=== PATIENT | male | born 1950 ===

== ENCOUNTER 2019-01-07 19:10 | Inpatient (IN) ==
[2019-01-08] MEDS ORDERED: Naloxone 0.4 MG/ML INJ IVP PRN (01:05)
[2019-01-08] MEDS ORDERED: OXYCODONE Oral CONC 10 MG/0.5 ML ORAL.SYG SL PRN (01:31)
[2019-01-08] MEDS: OXYCODONE Oral CONC 10 MG/0.5 ML ORAL.SYG SL PRN ×2 (01:52→21:22)
--- NOTE | 2019-01-08 02:28 | Internal Med History&Physical ---
Date of Encounter: 01/07/19 Time of Encounter: 23:40 Internal Medicine - H&P: HPI Chief complaint: Left hip fracture Admitted From: Hospital to Hospital Transfer Plans for Post Hospital Care: Home History of present illness: Mr. Fu is a 68 year old male Patient presented from [facility] emergency room for a left hip fracture. Patient poor historian, details of history of present illness obtained from ER record which was sent with the patient. Details of initial injury is unknown however there is a note from the record that indicates that on Monday the patient fell onto his left hip. 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 He has a history of dementia as well. He is a resident at a senior living. In the ER patient's vital signs were within normal limits, BMP was performed and is as follows: Sodium 135, potassium 4.1, bicarbonate 24, chloride 102, BUN is 39 and creatinine 2.15. Patient's glucose was 375. GFR is 31. Patient does have a history of chronic kidney disease. X-ray of the hip showed comminuted fracture at left femoral neck and intertrochanteric region. A chest x-ray was also performed that showed a left lower lobe opacity suspicion for some pneumonia is possible. He was given 6 units of insulin, and orthopedic surgery was contacted. He was transferred to [facility] for further management. Details from [facility] are sparse, patient is missing majority of his lab work that was apparently performed. Upon my evaluation patient is resting comfortably in the hospital bed. He is confused but does know his name, birthdate and the month. He did not know initially where he was but he did know he was in [place]. According to the paperwork sent from [facility] he has past medical history of chronic kidney disease, CVA with left-sided paralysis, diabetes, dementia, GERD, hypertension and seizures. Information of family history could not be obtained. His paperwork indicated that he is a full code. Patient did denied chest pain, abdominal pain, nausea, vomiting, diarrhea and constipation. Past Med Surg Social Fam HX - Past Medical History Additional medical history: CKD, CVA, DM, Dementia, GERD, HTN, Seizures Psychiatric history: no psych history - Past Surgical History Surgical History: no surgical history - Social History Smoking Status: Unknown if ever smoked Smokeless Tobacco Status: No Alcohol use: none Drug use: none Internal Medicine - H&P: Meds Aspirin [Lo-Dose Aspirin EC] 81 mg PO 01/07/19 [History] Carvedilol [Coreg] 01/07/19 [History] Divalproex Sodium [Depakote] TID 01/07/19 [History] Insulin ASPART [NovoLOG] 01/07/19 [History] Insulin Glargine [Lantus] 34 units SQ 01/07/19 [History] Medroxyprogesterone Acetate [Provera] 5 mg PO DAILY 01/07/19 [History] Promethazine [Phenergan] 12.5 mg IV Q6HR PRN 01/07/19 [History] amLODIPine [Norvasc] 5 mg PO DAILY 01/07/19 [History] levETIRAcetam [Roweepra] 750 mg PO BID 01/07/19 [History] Allergy/AdvReac Type Severity Reaction Status Date / Time No Known Allergies Allergy Verified 01/07/19 22:19 All Systems PM: A 10-system review of systems was performed and is negative for pertinent findings except as documented above in the HPI. - Constitutional Vitals: Temp Pulse Resp BP Pulse Ox 99.5 F 96 18 171/106 93 01/07/19 22:56 01/07/19 22:56 01/07/19 22:56 01/07/19 22:56 01/07/19 22:56 General appearance: Present: A&O X 2, pleasant, no acute distress, answers questions appropriately. Absent: cooperative Exam: - - Head Head exam: Present: normal inspection - Eye Eye exam: Present: normal appearance - Respiratory Respiratory exam: Absent: CTAB, rales, respiratory distress, rhonchi, wheezes - Cardiovascular Cardiovascular exam: Present: RRR. Absent: diastolic murmur, systolic murmur - GI/Abdominal GI/Abdominal exam: Present: normal bowel sounds, soft. Absent: tenderness - Extremities Exam Extremities exam: Present: tenderness, warm, radial pulses palpable and symmetrical. Absent: pedal edema Additional comments: Patient has tenderness at the left hip, he is laying in a bent position on his left hip. He does not seem to be in much pain. - Neurological Exam Neurological exam: Present: motor sensory deficit. Absent: no focal deficits, strengths equal and symetr throughout, facial droop, speech deficit Additional comments: Left-sided paralysis, patient did not cooperate with neuro exam completely for full assessment. He does have frequent mouth movements even while not talking. - Skin Skin exam: Present: dry, normal color, warm - Assessment and Plan (1) Closed left hip fracture Current Visit: Yes Status: Acute Assessment and plan: Patient has a left hip fracture as seen on x-ray. Imaging has been sent to radiology for uploaded into our system. Dr. Muhammad was contacted and will see the patient in the morning. Follow up orthopedic surgery consult Nothing by mouth Pain management as needed A.m. labs EKG in the morning Qualifiers: Encounter type: initial encounter Qualified Code(s): S72.002A - Fracture of unspecified part of neck of left femur, initial encounter for closed fracture (2) Chronic kidney disease Current Visit: Yes Status: Acute Assessment and plan: Patient has apparently a history of chronic kidney disease, current GFR would place him in a stage III category. Unclear what his true baseline is. Continue IV fluid hydration Renally dose meds Avoid nephrotoxic medication Continue to monitor Repeat labs in the morning Qualifiers: Chronic kidney disease stage: stage 3 (moderate) Qualified Code(s): N18.3 - Chronic kidney disease, stage 3 (moderate) (3) History of CVA (cerebrovascular accident) Current Visit: Yes Status: Acute Assessment and plan: Patient has left-sided hemiparesis. Continue to monitor (4) Pneumonia Current Visit: Yes Status: Acute Assessment and plan: Patient's chest x-ray showed possible pneumonia in the left lower lobe. Patient's vital signs were within normal limits. Physical exam also within normal limts. We do not have a cbc available for this patient yet. Obtain morning labs Obtain blood cultures Hold off on antibiotics for now, follow up labs and clinical presentation. Monitor for worsening signs of infection. Qualifiers: Pneumonia type: due to unspecified organism Laterality: left Lung location: lower lobe of lung Qualified Code(s): J18.1 - Lobar pneumonia, unspecified organism (5) Diabetes Current Visit: Yes Status: Acute Assessment and plan: Patient is an insulin dependent diabetic Monitor sugars Q6H NPO diet Low dose insulin sliding scale as needed Q6H Hold home meds. Qualifiers: Diabetes mellitus type: type 2 Diabetes mellitus custodial insulin use: with custodial use Diabetes mellitus complication status: with hyperglycemia Qualified Code(s): E11.65 - Type 2 diabetes mellitus with hyperglycemia; Z79.4 - correction (current) use of insulin (6) Dementia Current Visit: Yes Status: Acute Assessment and plan: Could also be related to CVA. Patient poor historian. No previous records in our system. Continue to monitor Continue home meds when no longer NPO Qualifiers: Dementia type: unspecified type Dementia behavioral disturbance: without behavioral disturbance Qualified Code(s): F03.90 - Unspecified dementia without behavioral disturbance (7) DVT prophylaxis Current Visit: Yes Status: Acute Assessment and plan: SCDs - Time Spent With Patient Total time spent is greater than 50% in coordination of care (as documented) at patient's floor/unit and/or counseling patient: Greater than 35 minutes
[2019-01-08] MEDS ORDERED: 0.9 % Sodium Chloride 1,000 ML IVC ONE (03:15)
[2019-01-08] MEDS ORDERED: Dextrose Gel 15 GM/37.5 ML TUBE PO PRN ×2 (03:59)
[2019-01-08] MEDS ORDERED: D5% in Water 1,000 ML IVC PRN (03:59)
[2019-01-08] MEDS ORDERED: *HR* Dextrose 50 % in Water (Syg) 50 ML SYRINGE IVP PRN (03:59)
[2019-01-08] MEDS: Insulin LISPRO 300 UNITS/3 ML VIAL SQ SCH ×3 (04:43→19:09)
[2019-01-08 07:43] LABS: Hematocrit 28.3 % (37.5-50.1); Hemoglobin 9.1 g/dL (12.9-16.9); Mean Corpuscular HGB Conc 32.2 g/dL (31.6-35.5); Mean Corpuscular Hemoglobin 25.8 pg (28.0-33.3); Mean Corpuscular Volume 80.2 fL (83.0-100.0); Mean Platelet Volume 12.1 fL (9.4-12.4); Platelet Count 180 K/mcL (140-400); Red Blood Count 3.53 M/mcL (4.19-5.50); Red Cell Distribution Width 14.7 % (11.5-14.5)
[2019-01-08 07:53] LABS: INR 1.1; Prothrombin Time 12.1 Seconds (9.4-12.1)
[2019-01-08 08:03] LABS: Calcium 9.1 mg/dL (8.6-10.3); Potassium 4.1 mEq/L (3.5-5.1)
--- NOTE | 2019-01-08 16:06 | Orthopedic Consult Note ---
Addendum entered and electronically signed by SUNITHA Saldivar 01/09/19 08:15: Consent reviewed and obtained after questions were satisfactorily answered from patient's legally appointed guardian Reed Alcala with witness by Hillary Hebert PA-C Original Note: Date of Encounter: 01/08/19 Time of Encounter: 16:20 Assessment and Plan (1) Closed left hip fracture Current Visit: Yes Status: Acute Qualifiers: Encounter type: initial encounter Qualified Code(s): S72.002A - Fracture of unspecified part of neck of left femur, initial encounter for closed fracture History of Present Illness Chief complaint: left hip pain/fracture HPI: Mr. Fu is a 68 year old male presenting from [facility] to [facility] and transferred to [facility] for definitive treatment. Patient is poor historian and unable to provide any surrounding details. He does admit to pain however cannot inform of localization of pain. One exam patient resting in bed, no acute distress Oriented to person Left leg noted to have 1+ pitting edema to palpation and tenderness about the left hip to palpation. Neurovascularly intact to b/l LE with no calf tenderness. Films not yet available from [facility] - diagnosis for left femur fracture Discussed with Dr. Muhammad - plan for left hip open reduction with intramedullary nail fixation 01/09 NPO midnight diet Pain control per hospitalist team Nonweightbearing with no motion to the left lower extremity Thank you for this consultation. Past Med Surg Social Fam HX - Past Medical History Additional medical history: CKD, CVA, DM, Dementia, GERD, HTN, Seizures Psychiatric history: no psych history - Past Surgical History Surgical History: no surgical history - Social History Smoking Status: Unknown if ever smoked Smokeless Tobacco Status: No Alcohol use: none Drug use: none Medications and Allergies Aspirin [Lo-Dose Aspirin EC] 81 mg PO 0900 01/07/19 [History] Carvedilol [Coreg] 25 mg PO 0900,1600 01/07/19 [History] Insulin ASPART [NovoLOG] 0 - 24 unit SQ 0700,1100,1600 01/07/19 [History] Insulin Glargine [Lantus] 34 units SQ 0700 01/07/19 [History] Medroxyprogesterone Acetate [Provera] 5 mg PO 0900 01/07/19 [History] Promethazine [Phenergan] 25 mg IM Q6HR PRN 01/07/19 [History] amLODIPine [Norvasc] 5 mg PO 0900 01/07/19 [History] levETIRAcetam [Roweepra] 750 mg PO 0900,209901/07/19 [History] Cimetidine 400 mg PO 0900,209901/08/19 [History] Dextromethorphan HBr/Quinidine [Nuedexta 20-10 mg Capsule] 1 cap PO 0900,209901/08/19 [History] Divalproex Sodium [Depakote Sprinkle] 125 mg PO 0900,1600,209901/08/19 [History] Insulin Glargine [Lantus] 60 unit SQ 209901/08/19 [History] Allergy/AdvReac Type Severity Reaction Status Date / Time No Known Allergies Allergy Verified 01/08/19 12:45 All Systems Reviewed: The remainder of the systems were reviewed and are negative Physical Exam - Constitutional Vitals: Temp Pulse Resp BP Pulse Ox 100 F H 98 18 161/112 93 01/08/19 15:25 01/08/19 15:25 01/08/19 15:25 01/08/19 15:25 01/08/19 15:25 Results - Labs Result Diagrams: 01/09/19 04:06 01/08/19 07:20 Labs: Abnormal lab results WBC 13.3 K/mcL (4.3-11.1) H 01/08/19 07:20 RBC 3.53 M/mcL (4.19-5.50) L 01/08/19 07:20 Hgb 9.1 g/dL (12.9-16.9) L 01/08/19 07:20 Hct 28.3 % (37.5-50.1) L 01/08/19 07:20 MCV 80.2 fL (83.0-100.0) L 01/08/19 07:20 MCH 25.8 pg (28.0-33.3) L 01/08/19 07:20 RDW 14.7 % (11.5-14.5) H 01/08/19 07:20 BUN 38 mg/dL (8-23) H 01/08/19 07:20 Creatinine 2.07 mg/dL (0.70-1.30) H 01/08/19 07:20 Est GFR ( Amer) 39 (> 60) L 01/08/19 07:20 Est GFR (Non-Af Amer) 32 (> 60) L 01/08/19 07:20 Glucose 300 mg/dL (70-105) H 01/08/19 07:20 Calculated Osmolality 310 (280-300) H 01/08/19 07:20 H & H 01/08/19 Range/Units 07:20 Hgb 9.1 L (12.9-16.9) g/dL Hct 28.3 L (37.5-50.1) % All other labs normal. Consult Discharge Plan - Plan Referrals: NONE,PCP [Primary Care Provider] -
--- NOTE | 2019-01-08 16:31 | Electrocardiograph Report ---
[place] [id number] Test Date: 2019-01-08 Pat Name: Bob Fu Department: 114 Room: [facility] Gender: M [place] Reporter: ALFRED : 1950 Requested By: Arnulfo Mcguire Order Number: [id number] Reading MD: Nora Berg Measurements Intervals Joffre Rate: 98 P: 20 PA: 150 QRS: -29 QRSD: 114 T: 138 QT: 354 QTc: 409 Interpretive Statements SINUS RHYTHM BORDERLINE LEFT AXIS DEVIATION MODERATE INTRAVENTRICULAR CONDUCTION DELAY ST DEVIATION AND MODERATE T-WAVE ABNORMALITY, CONSIDER LATERAL ISCHEMIA Electronically Signed On 01-08-2019 16:29:34 EDT by Nora Berg
[2019-01-08] MEDS: Acetaminophen 325 MG TABLET PO PRN (16:59)
--- NOTE | 2019-01-08 19:16 | Internal Med Progress Note ---
<Sunil Carmona - Last Filed: 01/08/19 19:13> Hospitalist Progress Note - Encounter Date of Encounter: 01/08/19 Time of Encounter: 08:00 - Subjective Interval History: Mr. Fu complains of mild left hip pain today. He denies any other complaints. He is unable to answer most questions regarding his care due to his dementia. He tells me that he does not have any family and he is not sure who makes his medical decisions. I informed him that orthopedic surgery would be evaluating him to determine if his left hip fracture warranted surgical intervention, he stated he agreed with the plan. - Exam Vitals: Temp Pulse Resp BP Pulse Ox 100 F H 98 18 161/112 93 01/08/19 15:25 01/08/19 15:25 01/08/19 15:25 01/08/19 15:25 01/08/19 15:25 Exam: Alert, oriented to person, not specific place, not time, maybe president EOMI, PERRLA Heart in regular rate and rhythm without murmur or gallop auscultated Lungs clear to auscultation Abdomen soft nontender with normal bowel sounds present Sensation intact in all 4 extremities, motor intact in bilateral upper extremities Patient stated he could not move right lower extremity when asked however he was noted to move it when not focusing Patient unable to move left lower extremity on exam, 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 Pulses intact in bilateral lower extremities Skin warm and dry without any noted bleeding or rash - Assessment and Plan (1) Closed left hip fracture Current Visit: Yes Status: Acute Assessment and Plan: Patient found to have close left hip fracture secondary to mechanical fall Orthopedic surgery evaluating, anesthesia evaluating for perioperative risk Orthopedic surgery planning to recheck to medical power of criminal defense attorney for consent We will await further recommendations (2) Chronic kidney disease Current Visit: Yes Status: Acute Assessment and Plan: History of chronic kidney disease, likely secondary to chronic type 2 diabetes Creatinine elevated on admission We will run gentle maintenance IV fluids, repeat BMP in a.m. (3) History of CVA (cerebrovascular accident) Current Visit: Yes Status: Acute Assessment and Plan: History of CVA with residual left-sided deficits (4) DVT prophylaxis Current Visit: Yes Status: Acute Assessment and Plan: Subcutaneous heparin (5) Diabetes Current Visit: Yes Status: Acute Assessment and Plan: Every 6 hours Accu-Cheks, low-dose sliding scale insulin protocol (6) Dementia Current Visit: Yes Status: Acute Assessment and Plan: History of dementia, patient is alert and oriented to self Currently attempting to determine medical power of criminal defense attorney (7) CAD (coronary artery disease) Current Visit: No Status: Chronic Assessment and Plan: History of coronary artery disease and previous CABG Continue home Norvasc, Coreg (8) History of seizure Current Visit: No Status: Chronic Assessment and Plan: Continue home Keppra and Depakote DVT Prophylaxis: Subcutaneous heparin - Time Spent with Patient Total time spent is greater than 50% in coordination of care (as documented) at patient's floor/unit and/or counseling patient: Internal Medicine: Result - Labs CBC & Chem 7: 01/08/19 07:20 01/08/19 07:20 Labs: Short CBC 01/08/19 Range/Units 07:20 WBC 13.3 H (4.3-11.1) K/mcL Hgb 9.1 L (12.9-16.9) g/dL Hct 28.3 L (37.5-50.1) % Plt Count 180 (140-400) K/mcL BMP 01/08/19 07:20 Sodium 140 Potassium 4.1 Chloride 107 Carbon Dioxide 28 BUN 38 H Creatinine 2.07 H Glucose 300 H Calcium 9.1 - ABG Interpretation ABG results: PT/INR, D-dimer PT 12.1 Seconds (9.4-12.1) 01/08/19 07:20 Consult Discharge Plan - Plan Referrals: NONE,PCP [Primary Care Provider] - <Yuri Travis - Last Filed: 01/10/19 10:46> Hospitalist Progress Note - Encounter Date of Encounter: 01/10/19 - Exam Vitals: Temp Pulse Resp BP Pulse Ox 99.1 F 86 20 163/93 94 01/10/19 09:59 01/10/19 09:59 01/10/19 09:59 01/10/19 09:59 01/10/19 09:59 - Assessment and Plan (1) Closed left hip fracture Current Visit: Yes Status: Acute (2) Chronic kidney disease Current Visit: Yes Status: Chronic (3) History of CVA (cerebrovascular accident) Current Visit: No Status: Chronic (4) DVT prophylaxis Current Visit: Yes Status: Acute (5) Diabetes Current Visit: Yes Status: Chronic (6) Dementia Current Visit: Yes Status: Chronic (7) CAD (coronary artery disease) Current Visit: No Status: Chronic (8) History of seizure Current Visit: No Status: Chronic - Time Spent with Patient Total time spent is greater than 50% in coordination of care (as documented) at patient's floor/unit and/or counseling patient: Internal Medicine: Result - Labs CBC & Chem 7: 01/10/19 06:36 01/10/19 06:36 Labs: Short CBC 01/09/19 01/10/19 Range/Units 15:21 06:36 Hgb 8.7 L 8.3 L (12.9-16.9) g/dL Hct 26.8 L (37.5-50.1) % BMP 01/10/19 06:36 Sodium 137 Potassium 4.9 Chloride 108 H Carbon Dioxide 20 L BUN 40 H Creatinine 1.71 H Glucose 308 H Calcium 8.2 L - ABG Interpretation ABG results: PT/INR, D-dimer PT 12.1 Seconds (9.4-12.1) 01/08/19 07:20 - Impressions Impressions Fluoroscopy 01/09/19 00:00 IMPRESSION: Intraprocedural fluoroscopic spot images as above. See separate procedure report for more information. D/ / Douglas Goff MD / Douglas Goff MD Interpreting Provider: Douglas Goff MD Hip X-Ray 01/09/19 00:00 IMPRESSION: Intraprocedural fluoroscopic spot images as above. See separate procedure report for more information. D/ / Douglas Goff MD / Douglas Goff MD Interpreting Provider: Douglas Goff MD Hip X-Ray 01/09/19 01:00 IMPRESSION: Postsurgical changes from intramedullary nailing of left proximal femur fracture. The major fracture fragments are in near anatomic alignment. The surgical hardware appears in appropriate position. D/ / Pedro Wakefield MD / Pedro Wakefield MD Interpreting Provider: Pedro Wakefield MD - Attending Attestation I examined this patient and my medical decision-making was reviewed with the Resident Physician. I agree with the documented findings, disposition and treatment plan as described except to the extent set forth below. _ <Sunil Carmona - Last Filed: 01/08/19 19:13> (1) Closed left hip fracture Qualifiers: Encounter type: initial encounter Qualified Code(s): S72.002A - Fracture of unspecified part of neck of left femur, initial encounter for closed fracture (2) Chronic kidney disease Qualifiers: Chronic kidney disease stage: stage 3 (moderate) Qualified Code(s): N18.3 - Chronic kidney disease, stage 3 (moderate) (5) Diabetes Qualifiers: Diabetes mellitus type: type 2 Diabetes mellitus nursing home insulin use: with terminal make up operator use Diabetes mellitus complication status: with hyperglycemia Qualified Code(s): E11.65 - Type 2 diabetes mellitus with hyperglycemia; Z79.4 - [facility] (current) use of insulin (6) Dementia Qualifiers: Dementia type: unspecified type Dementia behavioral disturbance: without behavioral disturbance Qualified Code(s): F03.90 - Unspecified dementia without behavioral disturbance (7) CAD (coronary artery disease) Qualifiers: Coronary Disease-Associated Artery/Lesion type: bypass graft [place] vs. transplanted heart: [place] heart Associated angina: without angina Qualified Code(s): I25.810 - Atherosclerosis of coronary artery bypass graft(s) without angina pectoris <Yuri Travis - Last Filed: 01/10/19 10:46> (1) Closed left hip fracture Qualifiers: Encounter type: initial encounter Qualified Code(s): S72.002A - Fracture of unspecified part of neck of left femur, initial encounter for closed fracture (2) Chronic kidney disease Qualifiers: Chronic kidney disease stage: stage 3 (moderate) Qualified Code(s): N18.3 - Chronic kidney disease, stage 3 (moderate) (5) Diabetes Qualifiers: Diabetes mellitus type: type 2 Diabetes mellitus nursing home insulin use: with nursing home use Diabetes mellitus complication status: with hyperglycemia Qualified Code(s): E11.65 - Type 2 diabetes mellitus with hyperglycemia; 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 transplanted heart: [place] heart Associated angina: without angina Qualified Code(s): I25.810 - Atherosclerosis of coronary artery bypass graft(s) without angina pectoris
--- NOTE | 2019-01-08 19:20 | Anesthesia Evaluation PreOp ---
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: Seizures, CVA (Left sided weakness), Other (dementia) Other Medical History: Renal (ckd), Diabetes Type II (insulin dependent), GERD Alcohol Use: none Drug use: none Medications and Allergies Aspirin [Lo-Dose Aspirin EC] 81 mg PO 0900 01/07/19 [History] Carvedilol [Coreg] 25 mg PO 0900,1600 01/07/19 [History] Insulin ASPART [NovoLOG] 0 - 24 unit SQ 0700,1100,1600 01/07/19 [History] Insulin Glargine [Lantus] 34 units SQ 0700 01/07/19 [History] Medroxyprogesterone Acetate [Provera] 5 mg PO 0900 01/07/19 [History] Promethazine [Phenergan] 25 mg IM Q6HR PRN 01/07/19 [History] amLODIPine [Norvasc] 5 mg PO 0900 01/07/19 [History] levETIRAcetam [Roweepra] 750 mg PO 0900,209901/07/19 [History] Cimetidine 400 mg PO 0900,209901/08/19 [History] Dextromethorphan HBr/Quinidine [Nuedexta 20-10 mg Capsule] 1 cap PO 0900,209901/08/19 [History] Divalproex Sodium [Depakote Sprinkle] 125 mg PO 0900,1600,209901/08/19 [History] Insulin Glargine [Lantus] 60 unit SQ 209901/08/19 [History] Allergy/AdvReac Type Severity Reaction Status Date / Time No Known Allergies Allergy Verified 01/08/19 12:45 - Meds/Allergy Pre-op Review Medications Reviewed: Yes Allergies Reviewed: Yes Beta Blockers on Current Med List: Yes (coreg) Anesthesia Results - Labs 01/08/19 07:20 01/08/19 07:20 - Imaging EKG: report reviewed, image reviewed (SINUS RHYTHM BORDERLINE LEFT AXIS DEVIATION MODERATE INTRAVENTRICULAR CONDUCTION DELAY ST DEVIATION AND MODERATE T-WAVE ABNORMALITY, CONSIDER LATERAL ISCHEMIA) Anesthesia Exam Last Vital Signs Temp 100 F H 01/08/19 15:25 Pulse 98 01/08/19 15:25 Resp 18 01/08/19 15:25 BP 161/112 01/08/19 15:25 Pulse Ox 93 01/08/19 15:25 Weight: 104 kg - HEENT Pupil (Motor): Pupils equal, EOMI Mallampati: IV Teeth: Edentulous Oral Opening: Greater than 3 (facial droop) - 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
[2019-01-08] MEDS: 0.9 % Sodium Chloride 1,000 ML IVC SCH (21:22)
[2019-01-08] MEDS: Famotidine 20 MG TABLET PO SCH (21:24)
[2019-01-08] MEDS: *HR* Heparin 5,000 UNIT/ML VIAL SQ SCH (21:24)
[2019-01-08] MEDS: Divalproex Sodium 125 MG CAPSULE PO SCH (21:24)
[2019-01-08] MEDS: levETIRAcetam 250 MG TABLET PO SCH (21:24)
[2019-01-08] MEDS: QUINIDINE PO SCH (22:45)
[2019-01-08] MEDS: DEXTROMETHORPHAN HBR PO SCH (22:45)
[2019-01-09] MEDS: Insulin LISPRO 300 UNITS/3 ML VIAL SQ SCH ×4 (01:26→21:44)
[2019-01-09 01:54] LABS: Bilirubin,Urine Negative (Negative); Blood,Urine Moderate (Negative); Clarity,Urine Cloudy (Clear); Color,Urine Yellow (Yellow); Glucose,Urine (UA) 500 mg/dL (Normal); Ketones,Urine Negative (Negative); Leukocyte Esterase,Urine Small (Negative); Nitrite,Urine Negative (Negative); PH,Urine 5.5 pH Units (5.0-8.0); Protein,Urine >=300 mg/dL (Neg-Trace); Specific Gravity,Urine 1.019 (1.010-1.025); Urobilinogen,Urine Normal (Normal)
[2019-01-09 01:58] LABS: Bacteria,Urine Many per hpf (None-Few); Hyaline Casts,Urine Few per lpf (None-Few); WBC,Urine 30-50 per hpf (0-3)
[2019-01-09 02:08] LABS: Amorphous Sediment,Urine Few (Few); Granular Casts,Urine Few per lpf (None Seen)
[2019-01-09 02:09] LABS: Squamous Epithelial Cell,Urine Moderate per lpf (None-Few)
[2019-01-09] MEDS: OXYCODONE Oral CONC 10 MG/0.5 ML ORAL.SYG SL PRN (03:37)
[2019-01-09 04:47] LABS: Basophils % 0.3 %; Eosinophils # 0.6 K/mcL (0.0-0.6); Eosinophils % 4.6 %; Hematocrit 28.3 % (37.5-50.1); Hemoglobin 9.2 g/dL (12.9-16.9); Immature Granulocytes % 0.8 % (0-4); Lymphocytes # 4.3 K/mcL (0.6-4.6); Lymphocytes % 32.5 %; Mean Corpuscular HGB Conc 32.5 g/dL (31.6-35.5); Mean Corpuscular Hemoglobin 25.3 pg (28.0-33.3); Mean Platelet Volume 12.3 fL (9.4-12.4); Monocytes # 1.1 K/mcL (0.0-1.3); Monocytes % 8.1 %; Platelet Count 174 K/mcL (140-400); Red Blood Count 3.63 M/mcL (4.19-5.50); Red Cell Distribution Width 14.6 % (11.5-14.5); Segmented Neutrophils % 53.7 %
[2019-01-09] MEDS: 0.9 % Sodium Chloride 1,000 ML IVC SCH ×3 (06:05→19:47)
[2019-01-09] MEDS: *HR* Heparin 5,000 UNIT/ML VIAL SQ SCH ×2 (06:08→18:42)
--- NOTE | 2019-01-09 06:51 | Orthopedics Progress Note ---
Date of Encounter: 01/09/19 Time of Encounter: 06:50 Subjective Interval history: Patient seen this morning with left intertrochanteric hip fracture plan for open reduction intramedullary nail fixation today. Objective Vital signs: Vital Signs Temp Pulse Resp BP Pulse Ox 01/09/19 04:43 156/83 01/09/19 04:13 98.7 F 90 16 143/80 96 01/09/19 03:24 98.9 F 94 16 176/106 96 01/09/19 01:55 98.7 F 205/91 01/08/19 22:59 99.8 F H 89 16 167/89 92 01/08/19 19:53 99.0 F 110 143/83 98 01/08/19 15:25 100 F H 98 18 161/112 93 01/08/19 10:59 98.0 F 97 16 164/110 91 Intake and Output 01/08/19 01/08/19 01/09/19 15:59 23:59 07:59 Intake Total 100 / 100 990 / 990 Output Total 50 / 50 Balance 100 / 100 940 / 940 Intake: IV Fluids 990 / 990 0.9 % Sodium Chloride 1,000 ML 990 / 990 @ 125 mls/hr IVC .Q8H [facility] Rx#: [id number] Oral 100 / 100 Output: Urine 50 / 50 Other: Meal Dinner Percent of Meal Consumed 50% # Urine Diapers 1 2 1 Weight 108 kg Blood Glucose* 257 235 217 - Labs CBC & BMP: 01/09/19 04:06 01/08/19 07:20 Labs: Abnormal lab results WBC 13.1 K/mcL (4.3-11.1) H 01/09/19 04:06 RBC 3.63 M/mcL (4.19-5.50) L 01/09/19 04:06 Hgb 9.2 g/dL (12.9-16.9) L 01/09/19 04:06 Hct 28.3 % (37.5-50.1) L 01/09/19 04:06 MCV 78.0 fL (83.0-100.0) L 01/09/19 04:06 MCH 25.3 pg (28.0-33.3) L 01/09/19 04:06 RDW 14.6 % (11.5-14.5) H 01/09/19 04:06 BUN 38 mg/dL (8-23) H 01/08/19 07:20 Creatinine 2.07 mg/dL (0.70-1.30) H 01/08/19 07:20 Est GFR ( Amer) 39 (> 60) L 01/08/19 07:20 Est GFR (Non-Af Amer) 32 (> 60) L 01/08/19 07:20 Glucose 300 mg/dL (70-105) H 01/08/19 07:20 POC Glucose 235 mg/dL (70-99) H 01/08/19 17:57 Calculated Osmolality 310 (280-300) H 01/08/19 07:20 Urine Clarity Cloudy (Clear) A 01/09/19 01:45 Urine Protein >=300 mg/dL (Neg-Trace) H 01/09/19 01:45 Urine Glucose (UA) 500 mg/dL (Normal) H 01/09/19 01:45 Urine Blood Moderate (Negative) H 01/09/19 01:45 Ur Leukocyte Esterase Small (Negative) H 01/09/19 01:45 Urine Microscopic RBC 5-15 per hpf (0-3) H 01/09/19 01:45 Urine Microscopic WBC 30-50 per hpf (0-3) H 01/09/19 01:45 Ur Squamous Epith Cells Moderate per lpf (None-Few) H 01/09/19 01:45 Urine Bacteria Many per hpf (None-Few) H 01/09/19 01:45 Granular Casts Few per lpf (None Seen) H 01/09/19 01:45 Ur Culture Indicated? YES (NO) A 01/09/19 01:45 Consult Discharge Plan - Plan Referrals: NONE,PCP [Primary Care Provider] -
[2019-01-09] MEDS ORDERED: *HR* Metoprolol 5 MG/5 ML VIAL IVP PRN ×2 (07:59→15:59)
[2019-01-09] MEDS: levETIRAcetam 250 MG TABLET PO SCH ×2 (08:14→21:44)
[2019-01-09] MEDS: Famotidine 20 MG TABLET PO SCH (08:14)
[2019-01-09] MEDS: Divalproex Sodium 125 MG CAPSULE PO SCH ×3 (08:14→21:44)
[2019-01-09] MEDS ORDERED: amLODIPine 5 MG TABLET PO SCH (09:00)
[2019-01-09] MEDS: QUINIDINE PO SCH ×2 (09:56→21:45)
[2019-01-09] MEDS: DEXTROMETHORPHAN HBR PO SCH ×2 (09:56→21:45)
[2019-01-09] MEDS ORDERED: cefTRIAXone 1,000 MG in Water for inj. (sterile) 20 ML 10 ML IVP SCH (10:00)
--- NOTE | 2019-01-09 10:29 | Internal Med Progress Note ---
Addendum entered and electronically signed by Sunil Carmona 01/09/19 18:29: Patient also has urinalysis consistent with UTI. Started on IV Rocephin. Original Note: <Ej Cosby - Last Filed: 01/09/19 17:19> Hospitalist Progress Note - Encounter Date of Encounter: 01/09/19 - Exam Vitals: Temp Pulse Resp BP Pulse Ox 97.6 F 78 18 151/93 95 01/09/19 16:34 01/09/19 16:34 01/09/19 16:34 01/09/19 16:34 01/09/19 16:34 - Assessment and Plan (1) Closed left hip fracture Current Visit: Yes Status: Acute (2) Chronic kidney disease Current Visit: Yes Status: Acute (3) History of CVA (cerebrovascular accident) Current Visit: Yes Status: Acute (4) DVT prophylaxis Current Visit: Yes Status: Acute (5) Diabetes Current Visit: Yes Status: Acute (6) Dementia Current Visit: Yes Status: Acute (7) CAD (coronary artery disease) Current Visit: No Status: Chronic (8) History of seizure Current Visit: No Status: Chronic - Time Spent with Patient Total time spent is greater than 50% in coordination of care (as documented) at patient's floor/unit and/or counseling patient: Internal Medicine: Result - Labs CBC & Chem 7: 01/09/19 15:21 01/08/19 07:20 Labs: Short CBC 01/09/19 01/09/19 Range/Units 04:06 15:21 WBC 13.1 H (4.3-11.1) K/mcL Hgb 9.2 L 8.7 L (12.9-16.9) g/dL Hct 28.3 L 26.8 L (37.5-50.1) % Plt Count 174 (140-400) K/mcL Neutrophils # 7.0 (1.6-8.9) K/mcL Urine 01/09/19 Range/Units 01:45 Urine Color Yellow (Yellow) Urine Clarity Cloudy A (Clear) Urine pH 5.5 (5.0-8.0) pH Units Ur Specific Kathryn 1.019 (1.010-1.025) Urine Protein >=300 H (Neg-Trace) mg/dL Urine Glucose (UA) 500 H (Normal) mg/dL - ABG Interpretation ABG results: PT/INR, D-dimer PT 12.1 Seconds (9.4-12.1) 01/08/19 07:20 - Impressions Impressions Fluoroscopy 01/09/19 00:00 IMPRESSION: Intraprocedural fluoroscopic spot images as above. See separate procedure report for more information. D/ / Douglas Goff MD / Douglas Goff MD Interpreting Provider: Douglas Goff MD Hip X-Ray 01/09/19 00:00 IMPRESSION: Intraprocedural fluoroscopic spot images as above. See separate procedure report for more information. D/ / Douglas Goff MD / Douglas Goff MD Interpreting Provider: Douglas Goff MD Hip X-Ray 01/09/19 01:00 IMPRESSION: Postsurgical changes from intramedullary nailing of left proximal femur fracture. The major fracture fragments are in near anatomic alignment. The surgical hardware appears in appropriate position. D/ / Pedro Wakefield MD / Pedro Wakefield MD Interpreting Provider: Pedro Wakefield MD Consult Discharge Plan - Plan Referrals: NONE,PCP [Primary Care Provider] - - Attending Attestation I examined this patient and my medical decision-making was reviewed with [facility]. I agree with the documented findings, disposition and treatment plan as described except to the extent set forth below. <Sunil Carmona - Last Filed: 01/09/19 18:00> Hospitalist Progress Note - Encounter Date of Encounter: 01/09/19 Time of Encounter: 09:00 - Subjective Interval History: Patient does not provide much history secondary to dementia. He denies any acute complaints this morning. He was not able to tell me what surgery he was having today. - Exam Vitals: Temp Pulse Resp BP Pulse Ox 98.1 F 76 16 150/84 96 01/09/19 07:10 01/09/19 10:05 01/09/19 07:10 01/09/19 10:05 01/09/19 07:10 Exam: Alert, oriented to person, not time or place EOMI, PERRLA Heart in regular rate and rhythm without murmur or gallop auscultated Lungs clear to auscultation Abdomen soft nontender with normal bowel sounds present Sensation intact in all 4 extremities, motor intact in bilateral upper extremities Patient stated he could not move right lower extremity when asked however he was noted to move it when not focusing Patient unable to move left lower extremity on exam, 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 Pulses intact in bilateral lower extremities Skin warm and dry without any noted bleeding or rash - Assessment and Plan (1) Closed left hip fracture Current Visit: Yes Status: Acute Assessment and Plan: Patient found to have closed left hip fracture secondary to mechanical fall Left hip open reduction intramedullary nail fixation completed today without incident Patient recovered well from anesthesia and was transferred back to floor Appreciate orthopedic recommendations, will likely initiate PT/OT tomorrow (2) Chronic kidney disease Current Visit: Yes Status: Chronic Assessment and Plan: History of chronic kidney disease, likely secondary to chronic type 2 diabetes Creatinine elevated on admission We will run gentle maintenance IV fluids, continue to monitor (3) History of CVA (cerebrovascular accident) Current Visit: No Status: Chronic Assessment and Plan: History of CVA with residual left-sided deficits (4) DVT prophylaxis Current Visit: Yes Status: Acute Assessment and Plan: Subcutaneous heparin (5) Diabetes Current Visit: Yes Status: Chronic Assessment and Plan: Before meals at bedtime Accu-Cheks, low-dose sliding scale insulin protocol (6) Dementia Current Visit: Yes Status: Chronic Assessment and Plan: History of dementia, patient is alert and oriented to self (7) CAD (coronary artery disease) Current Visit: No Status: Chronic Assessment and Plan: History of coronary artery disease and previous CABG Continue home Norvasc, Coreg (8) History of seizure Current Visit: No Status: Chronic Assessment and Plan: Continue home Keppra and Depakote - Time Spent with Patient Total time spent is greater than 50% in coordination of care (as documented) at patient's floor/unit and/or counseling patient: Internal Medicine: Result - Labs CBC & Chem 7: 01/09/19 15:21 01/08/19 07:20 Labs: Short CBC 01/09/19 Range/Units 04:06 WBC 13.1 H (4.3-11.1) K/mcL Hgb 9.2 L (12.9-16.9) g/dL Hct 28.3 L (37.5-50.1) % Plt Count 174 (140-400) K/mcL Neutrophils # 7.0 (1.6-8.9) K/mcL Urine 01/09/19 Range/Units 01:45 Urine Color Yellow (Yellow) Urine Clarity Cloudy A (Clear) Urine pH 5.5 (5.0-8.0) pH Units Ur Specific Kathryn 1.019 (1.010-1.025) Urine Protein >=300 H (Neg-Trace) mg/dL Urine Glucose (UA) 500 H (Normal) mg/dL - ABG Interpretation ABG results: PT/INR, D-dimer PT 12.1 Seconds (9.4-12.1) 01/08/19 07:20 ____ <Ej Cosby - Last Filed: 01/09/19 17:19> (1) Closed left hip fracture Qualifiers: Encounter type: initial encounter Qualified Code(s): S72.002A - Fracture of unspecified part of neck of left femur, initial encounter for closed fracture (2) Chronic kidney disease Qualifiers: Chronic kidney disease stage: stage 3 (moderate) Qualified Code(s): N18.3 - Chronic kidney disease, stage 3 (moderate) (5) Diabetes Qualifiers: Diabetes mellitus type: type 2 Diabetes mellitus senior living insulin use: with terminal clerk use Diabetes mellitus complication status: with hyperglycemia Qualified Code(s): E11.65 - Type 2 diabetes mellitus with hyperglycemia; Z79.4 - ad terminal makeup operator (current) use of insulin (6) Dementia Qualifiers: Dementia type: unspecified type Dementia behavioral disturbance: without behavioral disturbance Qualified Code(s): F03.90 - Unspecified dementia without behavioral disturbance (7) CAD (coronary artery disease) Qualifiers: Coronary Disease-Associated Artery/Lesion type: bypass graft [place] vs. transplanted heart: [place] heart Associated angina: without angina Qualified Code(s): I25.810 - Atherosclerosis of coronary artery bypass graft(s) without angina pectoris <Sunil Carmona - Last Filed: 01/09/19 18:00> (1) Closed left hip fracture Qualifiers: Encounter type: initial encounter Qualified Code(s): S72.002A - Fracture of unspecified part of neck of left femur, initial encounter for closed fracture (2) Chronic kidney disease Qualifiers: Chronic kidney disease stage: stage 3 (moderate) Qualified Code(s): N18.3 - Chronic kidney disease, stage 3 (moderate) (5) Diabetes Qualifiers: Diabetes mellitus type: type 2 Diabetes mellitus terminal clerk insulin use: with senior living use Diabetes mellitus complication status: with hyperglycemia Qualified Code(s): E11.65 - Type 2 diabetes mellitus with hyperglycemia; Z79.4 - [facility] (current) use of insulin (6) Dementia Qualifiers: Dementia type: unspecified type Dementia behavioral disturbance: without behavioral disturbance Qualified Code(s): F03.90 - Unspecified dementia without behavioral disturbance (7) CAD (coronary artery disease) Qualifiers: Coronary Disease-Associated Artery/Lesion type: bypass graft [place] vs. transplanted heart: [place] heart Associated angina: without angina Qualified Code(s): I25.810 - Atherosclerosis of coronary artery bypass graft(s) without angina pectoris
[2019-01-09] MEDS: Acetaminophen 325 MG TABLET PO PRN (11:09)
[2019-01-09] MEDS ORDERED: *HR* FentaNYL (PF) 100 MCG/2 ML VIAL ONE (11:37)
[2019-01-09] MEDS ORDERED: Lidocaine -MPF 2% 2 ML VIAL ONE (11:37)
[2019-01-09] MEDS ORDERED: Lidocaine -MPF 4% 5 ML AMPUL ONE (11:37)
[2019-01-09] MEDS ORDERED: *HR* Propofol 200 MG/20 ML VIAL IVP ONE (11:37)
[2019-01-09] MEDS ORDERED: *HR* Succinylcholine 200 MG/10 ML VIAL IVP ONE (11:37)
[2019-01-09] MEDS ORDERED: *HR* Midazolam HCl 2 MG/2 ML VIAL ONE (11:37)
[2019-01-09] MEDS ORDERED: ceFAZolin 2,000 MG in Water for inj. (sterile) 20 ML IVP ONE (12:38)
[2019-01-09] MEDS ORDERED: EPHEDrine 50 MG/ML VIAL ONE (13:58)
[2019-01-09] MEDS ORDERED: Ondansetron 4 MG/2 ML VIAL ONE (14:00)
[2019-01-09] MEDS ORDERED: Dexamethasone 4 MG/ML VIAL ONE (14:00)
--- NOTE | 2019-01-09 14:35 | Orthopedic Operative Note ---
Date of procedure: 01/09/19 Pre-op diagnosis: Left hip fracture Post-op diagnosis: same Procedure: Procedure: Left hip open reduction intramedullary nail fixation Estimated blood loss: 50 cc Hardware: Metal: Synthes 10 x 130 degree TFN, 115 mm helical blade, 40 mm distal locking bolt Procedural Notes: Patient with significant soft bone hardware migrated easily. Operative procedure: The patient was brought to the operating room and placed on the operating room table. After general anesthesia was administered the well leg was place in the well leg mandel and the operative leg was placed in the fracture leg mandel. All pressure points were padded appropriately. The operative extremity was prepped and draped in the sterile surgical fashion patient received IV antibiotic prior to skin incision. A standard direct lateral approach was made over the entry point of the greater trochanter, the incision was made through the skin and subcutaneous tissue hemostasis was obtained with Bovie cautery. Using careful sharp dissection the fascia was identified and incised, flouroscopic assistance was used to identify the entry point. The guidepin was placed at the entry point using fluroscopic assistance, it was over reamed with the proximal reamer. The 10 x 130 degree nail was placed through the entry hole, across the fracture site into the distal fragment the position was confirmed with fluroscopy. A guide pin was placed through the proximal locking guide from the lateral femur through the nail across the fracture site into the femoral head, it was over reamed with the reamer. The 115 mm helical blade was placed over the guide pin through the nail, this was a challenge the helical blade migrated easily due to significant softness of the patient's bone. Eventually it was passed into the femoral head, locked in place with the proximal locking bolt. 40 mm Distal locking bolt was placed through the distal locking guide position of hardware and fracture reduction found to be acceptable with fluroscopic assistance. The wound was irrigated. Fascia was closed with a running #2 PDS suture. The deep tissue was irrigated and closed deep with #1 PDS suture superficially with 0 PDS suture and skin was closed with Dermabond. The patient was placed in a sterile dressing The patient was extubated and transferred to the recovery room in stable condition. Anesthesia: GETA Surgeon: Marvin Muhammad Was there an clinical laboratory assistant present: No Estimated blood loss (cc): 50 Condition: stable Disposition: PACU
[2019-01-09] MEDS ORDERED: *HR* Labetalol 20 MG/4 ML SYRINGE IVP ONE ×2 (15:15→15:17)
--- NOTE | 2019-01-09 15:40 | Anesthesia Evaluation Post Op ---
Date of Encounter: 01/09/19 Time of Encounter: 15:39 - Vital Signs Vital Signs: Vital Signs/O2 Sat, Most Current Temp Pulse Resp BP Pulse Ox 98.6 F 76 24 146/94 95 01/09/19 15:27 01/09/19 15:27 01/09/19 15:27 01/09/19 15:01/09/19 15:27 - Lungs Lungs: Clear Ascult./Percussion - Airway Airway: Non-obstructed - Cardiovascular Regular Rate - Mental Status Mental Status: Alert & Oriented, Answers Appropriately - Pain Pain Scale: 0 Pain Scale used: Numeric (1 - 10) - Nausea Vomiting Nausea Vomiting: Not Present - Hydration Hydration: NPO, Has not voided - Discharge PostOp Status: Transfer Patient to floor
[2019-01-09 15:43] LABS: Hematocrit 26.8 % (37.5-50.1); Hemoglobin 8.7 g/dL (12.9-16.9)
[2019-01-09] MEDS ORDERED: OXYCODONE Oral CONC 10 MG/0.5 ML ORAL.SYG SL PRN (15:59)
[2019-01-09] MEDS ORDERED: Acetaminophen 325 MG TABLET PO PRN (15:59)
[2019-01-09] MEDS ORDERED: D5% in Water 1,000 ML IVC PRN (15:59)
[2019-01-09] MEDS ORDERED: Dextrose Gel 15 GM/37.5 ML TUBE PO PRN ×2 (15:59)
[2019-01-09] MEDS ORDERED: Naloxone 0.4 MG/ML INJ IVP PRN (15:59)
[2019-01-09] MEDS ORDERED: *HR* Dextrose 50 % in Water (Syg) 50 ML SYRINGE IVP PRN (15:59)
[2019-01-09] MEDS ORDERED: Insulin LISPRO 300 UNITS/3 ML VIAL SQ SCH (18:00)
[2019-01-10] MEDS: 0.9 % Sodium Chloride 1,000 ML IVC SCH ×3 (02:09→19:29)
[2019-01-10] MEDS: *HR* Heparin 5,000 UNIT/ML VIAL SQ SCH ×2 (04:33→18:45)
[2019-01-10] MEDS: OXYCODONE Oral CONC 10 MG/0.5 ML ORAL.SYG SL PRN ×3 (05:21→21:05)
--- NOTE | 2019-01-10 06:46 | Orthopedics Progress Note ---
Date of Encounter: 01/10/19 Time of Encounter: 06:46 Subjective Interval history: Patient was seen this morning doing Afebrile vital signs stable. Operative extremity: Neurovascularly intact Dressing clean dry and intact [place] nontender Assessment and plan: Continue with postoperative care Objective Vital signs: Vital Signs Temp Pulse Resp BP Pulse Ox 01/10/19 06:15 163/96 01/10/19 05:17 164/78 01/10/19 03:20 98.5 F 80 17 175/85 96 01/09/19 22:41 98.7 F 91 16 154/80 92 01/09/19 22:04 93 01/09/19 19:57 98.3 F 79 16 142/86 93 01/09/19 18:05 97.9 F 84 18 138/76 95 01/09/19 17:00 98.0 F 80 19 141/91 98 01/09/19 16:34 97.6 F 78 18 151/93 95 01/09/19 16:00 95 01/09/19 15:59 97.3 F L 78 17 151/102 93 01/09/19 15:47 98.6 F 75 24 144/88 95 01/09/19 15:37 77 22 154/94 95 01/09/19 15:27 98.6 F 76 24 146/94 95 01/09/19 15:17 77 22 151/103 94 01/09/19 15:07 82 18 151/103 94 01/09/19 14:57 98.0 F 86 16 152/110 98 01/09/19 10:49 100.3 F H 87 16 165/95 96 01/09/19 10:05 76 150/84 01/09/19 07:10 98.1 F 102 16 190/113 96 Intake and Output 01/09/19 01/09/19 01/10/19 15:59 23:59 07:59 Intake Total 20 / 20 100 / 100 1000 / 1000 Output Total 50 / 50 Balance -30 / -30 100 / 100 1000 / 1000 Intake: IV Fluids 20 / 20 100 / 100 1000 / 1000 0.9 % Sodium Chloride 1,000 ML 1000 / 1000 @ 125 mls/hr IVC .Q8H [facility] Rx#: [id number] Ancef 2,000 MG In Water for inj 20 / 20 . (sterile) 20 ML @ 200 mls/hr IVP [facility] Rx#:[id number] Ancef 2,000 MG In 0.9 % Sodium 100 / 100 Chloride 100 ML @ 200 mls/hr IVPB Q8H [facility] Rx#:[id number] Output: Estimated Blood Loss 50 / 50 Other: # Urine Diapers 1 2 Weight 110 kg 110.2 kg Blood Glucose* 199 233 Patient Weight 01/10/19 23:59 Weight 110.2 kg - Labs CBC & BMP: 01/09/19 15:21 01/08/19 07:20 Labs: Abnormal lab results WBC 13.1 K/mcL (4.3-11.1) H 01/09/19 04:06 RBC 3.63 M/mcL (4.19-5.50) L 01/09/19 04:06 Hgb 8.7 g/dL (12.9-16.9) L 01/09/19 15:21 Hct 26.8 % (37.5-50.1) L 01/09/19 15:21 MCV 78.0 fL (83.0-100.0) L 01/09/19 04:06 MCH 25.3 pg (28.0-33.3) L 01/09/19 04:06 RDW 14.6 % (11.5-14.5) H 01/09/19 04:06 BUN 38 mg/dL (8-23) H 01/08/19 07:20 Creatinine 2.07 mg/dL (0.70-1.30) H 01/08/19 07:20 Est GFR ( Amer) 39 (> 60) L 01/08/19 07:20 Est GFR (Non-Af Amer) 32 (> 60) L 01/08/19 07:20 Glucose 300 mg/dL (70-105) H 01/08/19 07:20 POC Glucose 233 mg/dL (70-99) H 01/09/19 20:58 Calculated Osmolality 310 (280-300) H 01/08/19 07:20 Urine Clarity Cloudy (Clear) A 01/09/19 01:45 Urine Protein >=300 mg/dL (Neg-Trace) H 01/09/19 01:45 Urine Glucose (UA) 500 mg/dL (Normal) H 01/09/19 01:45 Urine Blood Moderate (Negative) H 01/09/19 01:45 Ur Leukocyte Esterase Small (Negative) H 01/09/19 01:45 Urine Microscopic RBC 5-15 per hpf (0-3) H 01/09/19 01:45 Urine Microscopic WBC 30-50 per hpf (0-3) H 01/09/19 01:45 Ur Squamous Epith Cells Moderate per lpf (None-Few) H 01/09/19 01:45 Urine Bacteria Many per hpf (None-Few) H 01/09/19 01:45 Granular Casts Few per lpf (None Seen) H 01/09/19 01:45 Ur Culture Indicated? YES (NO) A 01/09/19 01:45 Consult Discharge Plan - Plan Referrals: NONE,PCP [Primary Care Provider] -
[2019-01-10 07:00] LABS: Calcium 8.2 mg/dL (8.6-10.3); Potassium 4.9 mEq/L (3.5-5.1)
--- NOTE | 2019-01-10 08:09 | Internal Med Progress Note ---
<Sunil Carmona - Last Filed: 01/10/19 15:00> Hospitalist Progress Note - Encounter Date of Encounter: 01/10/19 Time of Encounter: 08:09 - Subjective Interval History: I asked the patient if he was in a pain today, he responded "a little of this, a little of that". He otherwise is not able to provide much history. - Exam Vitals: Temp Pulse Resp BP Pulse Ox 98.9 F 87 16 161/78 92 01/10/19 06:52 01/10/19 06:52 01/10/19 06:52 01/10/19 06:52 01/10/19 06:52 Exam: Alert, oriented to person, not time or place EOMI, PERRLA Heart in regular rate and rhythm without murmur or gallop auscultated Lungs clear to auscultation Abdomen soft nontender with normal bowel sounds present Sensation intact in all 4 extremities, motor intact in bilateral upper extremities Bandage on left hip clean, dry, intact Patient stated he could not move right lower extremity Patient did absentmindedly move left lower extremity on exam, he does have a 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 Pulses intact in bilateral lower extremities Skin warm and dry without any noted bleeding or rash - Assessment and Plan (1) Closed left hip fracture Current Visit: Yes Status: Acute Assessment and Plan: Patient found to have closed left hip fracture secondary to mechanical fall Left hip open reduction intramedullary nail fixation completed yesterday without incident Patient recovered well from anesthesia and was transferred back to floor Patient is doing well postoperatively, physical therapy evaluated today Patient is not able to perform cooperate significantly with physical therapy secondary to dementia We will await orthopedic recommendations on discharge disposition (2) Chronic kidney disease Current Visit: Yes Status: Chronic Assessment and Plan: History of chronic kidney disease, likely secondary to chronic type 2 diabetes Creatinine elevated on admission, improving with maintenance IV fluids (3) History of CVA (cerebrovascular accident) Current Visit: No Status: Chronic Assessment and Plan: History of CVA with residual left-sided deficits (4) DVT prophylaxis Current Visit: Yes Status: Acute Assessment and Plan: Subcutaneous heparin (5) Diabetes Current Visit: Yes Status: Chronic Assessment and Plan: Before meals at bedtime Accu-Cheks, low-dose sliding scale insulin protocol (6) Dementia Current Visit: Yes Status: Chronic Assessment and Plan: History of dementia, patient is alert and oriented to self (7) CAD (coronary artery disease) Current Visit: No Status: Chronic Assessment and Plan: History of coronary artery disease and previous CABG Continue home Norvasc, Coreg (8) History of seizure Current Visit: No Status: Chronic Assessment and Plan: Continue home Keppra and Depakote (9) Anemia Current Visit: Yes Status: Acute Assessment and Plan: Patient presented with microcytic anemia, likely combination of iron deficiency and chronic disease Hemoglobin has mildly decreased postoperatively, possibly small blood loss component Hemoglobin checked twice a day, stable, will continue to monitor, patient typed and screened just in case - Time Spent with Patient Total time spent is greater than 50% in coordination of care (as documented) at patient's floor/unit and/or counseling patient: Internal Medicine: Result - Labs CBC & Chem 7: 01/10/19 11:44 01/10/19 06:36 Labs: Short CBC 01/09/19 01/10/19 Range/Units 15:21 06:36 Hgb 8.7 L 8.3 L (12.9-16.9) g/dL Hct 26.8 L (37.5-50.1) % BMP 01/10/19 06:36 Sodium 137 Potassium 4.9 Chloride 108 H Carbon Dioxide 20 L BUN 40 H Creatinine 1.71 H Glucose 308 H Calcium 8.2 L - ABG Interpretation ABG results: PT/INR, D-dimer PT 12.1 Seconds (9.4-12.1) 01/08/19 07:20 - Impressions Impressions Fluoroscopy 01/09/19 00:00 IMPRESSION: Intraprocedural fluoroscopic spot images as above. See separate procedure report for more information. D/ / Douglas Goff MD / Douglas Goff MD Interpreting Provider: Douglas Goff MD Hip X-Ray 01/09/19 00:00 IMPRESSION: Intraprocedural fluoroscopic spot images as above. See separate procedure report for more information. D/ / Douglas Goff MD / Douglas Goff MD Interpreting Provider: Douglas Goff MD Hip X-Ray 01/09/19 01:00 IMPRESSION: Postsurgical changes from intramedullary nailing of left proximal femur fracture. The major fracture fragments are in near anatomic alignment. The surgical hardware appears in appropriate position. D/ / Pedro Wakefield MD / Pedro Wakefield MD Interpreting Provider: Pedro Wakefield MD Consult Discharge Plan - Plan Referrals: NONE,PCP [Primary Care Provider] - <Ej Cosby - Last Filed: 01/10/19 17:42> Hospitalist Progress Note - Encounter Date of Encounter: 01/10/19 - Exam Vitals: Temp Pulse Resp BP Pulse Ox 98.6 F 82 16 150/84 94 01/10/19 16:34 01/10/19 16:34 01/10/19 16:34 01/10/19 16:34 01/10/19 16:34 - Assessment and Plan (1) Closed left hip fracture Current Visit: Yes Status: Acute (2) Chronic kidney disease Current Visit: Yes Status: Chronic (3) History of CVA (cerebrovascular accident) Current Visit: No Status: Chronic (4) DVT prophylaxis Current Visit: Yes Status: Acute (5) Diabetes Current Visit: Yes Status: Chronic (6) Dementia Current Visit: Yes Status: Chronic (7) CAD (coronary artery disease) Current Visit: No Status: Chronic (8) History of seizure Current Visit: No Status: Chronic (9) Anemia Current Visit: Yes Status: Acute - Time Spent with Patient Total time spent is greater than 50% in coordination of care (as documented) at patient's floor/unit and/or counseling patient: Internal Medicine: Result - Labs CBC & Chem 7: 01/10/19 11:44 01/10/19 06:36 Labs: Short CBC 01/10/19 01/10/19 Range/Units 06:36 11:44 Hgb 8.3 L 8.6 L (12.9-16.9) g/dL BMP 01/10/19 06:36 Sodium 137 Potassium 4.9 Chloride 108 H Carbon Dioxide 20 L BUN 40 H Creatinine 1.71 H Glucose 308 H Calcium 8.2 L - ABG Interpretation ABG results: PT/INR, D-dimer PT 12.1 Seconds (9.4-12.1) 01/08/19 07:20 - Attending Attestation I examined this patient and my medical decision-making was reviewed with the Resident Physician. I agree with the documented findings, disposition and treatment plan as described except to the extent set forth below. <Sunil Carmona - Last Filed: 01/10/19 15:00> (1) Closed left hip fracture Qualifiers: Encounter type: initial encounter Qualified Code(s): S72.002A - Fracture of unspecified part of neck of left femur, initial encounter for closed fracture (2) Chronic kidney disease Qualifiers: Chronic kidney disease stage: stage 3 (moderate) Qualified Code(s): N18.3 - Chronic kidney disease, stage 3 (moderate) (5) Diabetes Qualifiers: Diabetes mellitus type: type 2 Diabetes mellitus systems analysis manager insulin use: with systems analysis manager use Diabetes mellitus complication status: with hyperglycemia Qualified Code(s): E11.65 - Type 2 diabetes mellitus with hyperglycemia; Z79.4 - pyrotechnics press tender (current) use of insulin (6) Dementia Qualifiers: Dementia type: unspecified type Dementia behavioral disturbance: without behavioral disturbance Qualified Code(s): F03.90 - Unspecified dementia without behavioral disturbance (7) CAD (coronary artery disease) Qualifiers: Coronary Disease-Associated Artery/Lesion type: bypass graft [place] vs. transplanted heart: [place] heart Associated angina: without angina Qualified Code(s): I25.810 - Atherosclerosis of coronary artery bypass graft(s) without angina pectoris (9) Anemia Qualifiers: Anemia type: other cause <Ghanem,Richard Rheem - Last Filed: 01/10/19 17:42> (1) Closed left hip fracture Qualifiers: Encounter type: initial encounter Qualified Code(s): S72.002A - Fracture of unspecified part of neck of left femur, initial encounter for closed fracture (2) Chronic kidney disease Qualifiers: Chronic kidney disease stage: stage 3 (moderate) Qualified Code(s): N18.3 - Chronic kidney disease, stage 3 (moderate) (5) Diabetes Qualifiers: Diabetes mellitus type: type 2 Diabetes mellitus systems analysis manager insulin use: with systems analysis manager use Diabetes mellitus complication status: with hyperglycemia Qualified Code(s): E11.65 - Type 2 diabetes mellitus with hyperglycemia; Z79.4 - pyrotechnics press tender (current) use of insulin (6) Dementia Qualifiers: Dementia type: unspecified type Dementia behavioral disturbance: without behavioral disturbance Qualified Code(s): F03.90 - Unspecified dementia without behavioral disturbance (7) CAD (coronary artery disease) Qualifiers: Coronary Disease-Associated Artery/Lesion type: bypass graft [place] vs. transplanted heart: [place] heart Associated angina: without angina Qualified Code(s): I25.810 - Atherosclerosis of coronary artery bypass graft(s) without angina pectoris (9) Anemia Qualifiers: Anemia type: other cause
[2019-01-10] MEDS: Insulin LISPRO 300 UNITS/3 ML VIAL SQ SCH ×4 (08:38→20:47)
[2019-01-10] MEDS: Divalproex Sodium 125 MG CAPSULE PO SCH ×3 (08:44→20:43)
[2019-01-10] MEDS: amLODIPine 5 MG TABLET PO SCH (08:44)
[2019-01-10] MEDS: levETIRAcetam 250 MG TABLET PO SCH ×2 (08:45→20:43)
[2019-01-10] MEDS: cefTRIAXone 1,000 MG in Water for inj. (sterile) 20 ML 10 ML IVP SCH (08:45)
[2019-01-10] MEDS ORDERED: Famotidine 20 MG TABLET PO SCH (09:00)
[2019-01-10] MEDS: DEXTROMETHORPHAN HBR PO SCH ×2 (10:49→21:13)
[2019-01-10] MEDS: QUINIDINE PO SCH ×2 (10:49→21:13)
[2019-01-11] MEDS: OXYCODONE Oral CONC 10 MG/0.5 ML ORAL.SYG SL PRN (01:33)
[2019-01-11 04:26] LABS: VBG Ionized Calcium 1.12 mmol/L (1.15-1.35)
[2019-01-11 04:46] LABS: Calcium 8.1 mg/dL (8.6-10.3); Potassium 4.8 mEq/L (3.5-5.1)
[2019-01-11] MEDS: *HR* Heparin 5,000 UNIT/ML VIAL SQ SCH (04:49)
[2019-01-11] MEDS: 0.9 % Sodium Chloride 1,000 ML IVC SCH (04:49)
--- NOTE | 2019-01-11 06:41 | Orthopedics Progress Note ---
Date of Encounter: 01/11/19 Time of Encounter: 06:40 Subjective Interval history: Patient was seen this morning doing Afebrile vital signs stable. Operative extremity: Neurovascularly intact Dressing clean dry and intact [place]ves nontender Assessment and plan: Continue with postoperative care Hemoglobin 8.3 orthopedically stable for discharge Objective Vital signs: Vital Signs Temp Pulse Resp BP Pulse Ox 01/11/19 05:27 98.9 F 80 16 157/98 96 01/11/19 01:19 146/86 01/11/19 01:05 96 01/11/19 00:45 98.3 F 94 18 160/103 96 01/10/19 19:29 97.9 F 90 16 157/93 94 01/10/19 16:34 98.6 F 82 16 150/84 94 01/10/19 11:04 99.1 F 80 20 147/76 92 01/10/19 11:03 99.1 F 80 20 147/76 92 01/10/19 09:59 99.1 F 86 20 163/93 94 01/10/19 06:52 98.9 F 87 16 161/78 92 Intake and Output 01/10/19 01/10/19 01/11/19 15:59 23:59 07:59 Intake Total 1000 / 1000 1000 / 1000 100 / 100 Output Total 0 / 0 Balance 1000 / 1000 1000 / 1000 100 / 100 Intake: IV Fluids 1000 / 1000 1000 / 1000 0 / 0 0.9 % Sodium Chloride 1,000 ML 1000 / 1000 1000 / 1000 0 / 0 @ 125 mls/hr IVC .Q8H [facility] Rx#: [id number] Oral 100 / 100 Output: Urine 0 / 0 Other: Meal Breakfast Percent of Meal Consumed 65% # Voids 0 # Urine Diapers 1 1 Weight 110.3 kg Blood Glucose* 295 396 Patient Weight 01/11/19 23:59 Weight 110.3 kg - Labs CBC & BMP: 01/11/19 03:57 01/11/19 03:57 Labs: Abnormal lab results WBC 13.1 K/mcL (4.3-11.1) H 01/09/19 04:06 RBC 3.63 M/mcL (4.19-5.50) L 01/09/19 04:06 Hgb 8.3 g/dL (12.9-16.9) L 01/11/19 03:57 Hct 26.8 % (37.5-50.1) L 01/09/19 15:21 MCV 78.0 fL (83.0-100.0) L 01/09/19 04:06 MCH 25.3 pg (28.0-33.3) L 01/09/19 04:06 RDW 14.6 % (11.5-14.5) H 01/09/19 04:06 Chloride 110 mEq/L (98-107) H 01/11/19 03:57 Carbon Dioxide 21 mEq/L (23-29) L 01/11/19 03:57 BUN 42 mg/dL (8-23) H 01/11/19 03:57 Creatinine 1.63 mg/dL (0.70-1.30) H 01/11/19 03:57 Est GFR ( Amer) 52 (> 60) L 01/11/19 03:57 Est GFR (Non-Af Amer) 43 (> 60) L 01/11/19 03:57 Glucose 271 mg/dL (70-105) H 01/11/19 03:57 POC Glucose 233 mg/dL (70-99) H 01/09/19 20:58 Calculated Osmolality 306 (280-300) H 01/11/19 03:57 Calcium 8.1 mg/dL (8.6-10.3) L 01/11/19 03:57 Venous Ioniz Calcium 1.12 mmol/L (1.15-1.35) L 01/11/19 04:23 Urine Clarity Cloudy (Clear) A 01/09/19 01:45 Urine Protein >=300 mg/dL (Neg-Trace) H 01/09/19 01:45 Urine Glucose (UA) 500 mg/dL (Normal) H 01/09/19 01:45 Urine Blood Moderate (Negative) H 01/09/19 01:45 Ur Leukocyte Esterase Small (Negative) H 01/09/19 01:45 Urine Microscopic RBC 5-15 per hpf (0-3) H 01/09/19 01:45 Urine Microscopic WBC 30-50 per hpf (0-3) H 01/09/19 01:45 Ur Squamous Epith Cells Moderate per lpf (None-Few) H 01/09/19 01:45 Urine Bacteria Many per hpf (None-Few) H 01/09/19 01:45 Granular Casts Few per lpf (None Seen) H 01/09/19 01:45 Ur Culture Indicated? YES (NO) A 01/09/19 01:45 Consult Discharge Plan - Plan Referrals: NONE,PCP [Primary Care Provider] -
[2019-01-11] MEDS: Divalproex Sodium 125 MG CAPSULE PO SCH (08:17)
[2019-01-11] MEDS: levETIRAcetam 250 MG TABLET PO SCH (08:17)
[2019-01-11] MEDS: amLODIPine 5 MG TABLET PO SCH (08:18)
[2019-01-11] MEDS: QUINIDINE PO SCH (08:18)
[2019-01-11] MEDS: DEXTROMETHORPHAN HBR PO SCH (08:18)
[2019-01-11] MEDS: Insulin LISPRO 300 UNITS/3 ML VIAL SQ SCH ×2 (08:19→12:47)
[2019-01-11] MEDS ORDERED: Ringers Solution, Lactated 1,000 ML IVC SCH (08:45)
[2019-01-11] MEDS: cefTRIAXone 1,000 MG in Water for inj. (sterile) 20 ML 10 ML IVP SCH (09:50)
--- NOTE | 2019-01-11 11:31 | Discharge Summary ---
<Sunil Carmona - Last Filed: 01/11/19 11:28> - NOTES TO OUTPATIENT PROVIDER Notes to Outpatient Provider: Mr. Fu was admitted and treated for a left hip fracture sustained in a mechanical fall. He was admitted and evaluated by orthopedic surgery who recommended open reduction internal fixation. Surgery was successfully completed on 01/09/2019 without incident. Patient was kept during postoperative period and evaluated by physical therapy, recommended returning back to halfway facility. Patient was also found to have Escherichia coli UTI during admission, he received 3 days intravenous Rocephin. Will be discharged with 7 days of Augmentin to complete 10 day course for complicated UTI. We will discharge back to halfway facility in stable condition. Recommend repeat CBC and BMP in 3 days for mild anemia and improving acute kidney injury. Orders not resulted at time of discharge: Pending orders 01/08/19 07:18 Culture,Blood [BC] AM 0400 Date of Encounter: 01/11/19 Time of Encounter: 11:29 - Discharge Diagnosis (1) Closed left hip fracture Priority: Primary Status: Acute Assessment and Plan: Patient found to have closed left hip fracture secondary to mechanical fall Left hip open reduction intramedullary nail fixation completed yesterday without incident Patient recovered well from anesthesia and was transferred back to floor Patient is doing well postoperatively, physical therapy evaluated today Patient is not able to cooperate significantly with physical therapy secondary to dementia Okay to discharge from orthopedic standpoint Stable for discharge to halfway facility from medical standpoint Qualifiers: Encounter type: initial encounter Qualified Code(s): S72.002A - Fracture of unspecified part of neck of left femur, initial encounter for closed fracture (2) Anemia Priority: Secondary Status: Acute Assessment and Plan: Patient presented with microcytic anemia, likely combination of iron deficiency and chronic disease Hemoglobin has mildly decreased postoperatively, possibly small blood loss component Hemoglobin has been checked twice daily, has continued to remain stable Recommend repeat CBC in 3 days at halfway facility Qualifiers: Anemia type: other cause Other causes of anemia: other cause, not classified Qualified Code(s): D64.89 - Other specified anemias (3) Chronic kidney disease Priority: Secondary Status: Chronic Assessment and Plan: History of chronic kidney disease, likely secondary to chronic type 2 diabetes Creatinine elevated on admission, improving with maintenance IV fluids Continually improving, recommend BMP in 3 days at halfway facility Qualifiers: Chronic kidney disease stage: stage 3 (moderate) Qualified Code(s): N18.3 - Chronic kidney disease, stage 3 (moderate) (4) History of CVA (cerebrovascular accident) Priority: Secondary Status: Chronic Assessment and Plan: History of CVA with residual left-sided deficits (5) Diabetes Priority: Secondary Status: Chronic Assessment and Plan: Before meals at bedtime Accu-Cheks, low-dose sliding scale insulin protocol Discharge on home medications Qualifiers: Diabetes mellitus type: type 2 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 insulin use: with correction use Diabetes mellitus complication status: with hyperglycemia Qualified Code(s): E11.65 - Type 2 diabetes mellitus with hyperglycemia; Z79.4 - USP (current) use of insulin (6) Dementia Priority: Secondary Status: Chronic Assessment and Plan: History of dementia, patient is alert and oriented to self Qualifiers: Dementia type: unspecified type Dementia behavioral disturbance: without behavioral disturbance Qualified Code(s): F03.90 - Unspecified dementia without behavioral disturbance (7) CAD (coronary artery disease) Priority: Secondary Status: Chronic Assessment and Plan: History of coronary artery disease and previous CABG Continue home Norvasc, Coreg Qualifiers: Coronary Disease-Associated Artery/Lesion type: bypass graft [place] vs. transplanted heart: [place] heart Associated angina: without angina Qualified Code(s): I25.810 - Atherosclerosis of coronary artery bypass graft(s) without angina pectoris (8) History of seizure Priority: Secondary Status: Chronic Assessment and Plan: Continue home Keppra and Depakote (9) UTI (urinary tract infection) Priority: Secondary Status: Acute Assessment and Plan: Patient was found to have UTI on UA Culture demonstrated Escherichia coli Resistant to ciprofloxacin and levofloxacin Patient received 3 days of IV Rocephin We will discharge with 7 days Augmentin to complete 10 day course Qualifiers: Urinary tract infection type: acute cystitis Hematuria presence: without hematuria Qualified Code(s): N30.00 - Acute cystitis without hematuria Hospital course: Mr. Fu is a 68 year old male with a past medical history of CKD, CVA, DM, Dementia, GERD, HTN, Seizures, CAD Status post CABG. He presented for left hip fracture sustained in a mechanical fall at halfway facility. He was evaluated by orthopedic surgery who recommended open reduction internal fixation. Anesthesia evaluated patient for surgical risk. Orthopedic surgery was completed on 01/09/2019 without incident. Patient was kept for short postoperative. It was determined stable for discharge orthopedics. Physical therapy evaluated patient and recommended return to halfway facility. He will be discharged halfway facility in stable condition. Other diagnosis of note during hospital course is Escherichia coli UTI treated with 3 days of IV Rocephin, will be sent with 7 days of Augmentin to complete 10 day course. Patient also had mild anemia and acute kidney injury. Discharge discussed with: patient - Time Spent with Patient Total time spent providing and/or coordinating discharge services: - Discharge Medications Prescriptions: New Amoxicillin/Clavulanate [Augmentin] 500 mg PO BIDWM 7 Days #14 tablet Oxycodone HCl [OxyCODONE Oral Soln] 5 mg PO Q4HR PRN 2 Days #60 mls PRN Reason: Mild To Moderate Pain Continue Medroxyprogesterone Acetate [Provera] 5 mg PO 0900 amLODIPine [Norvasc] 5 mg PO 0900 Carvedilol [Coreg] 25 mg PO 0900,1600 Aspirin [Lo-Dose Aspirin EC] 81 mg PO 0900 levETIRAcetam [Roweepra] 750 mg PO 0900,2100 Promethazine [Phenergan] 25 mg IM Q6HR PRN PRN Reason: Nausea Insulin Glargine [Lantus] 34 units SQ 0700 Insulin ASPART [NovoLOG] 0 - 24 unit SQ 0700,1100,1600 Cimetidine 400 mg PO 0900,2100 Dextromethorphan HBr/Quinidine [Nuedexta 20-10 mg Capsule] 1 cap PO 0900,2100 Divalproex Sodium [Depakote Sprinkle] 125 mg PO 0900,1600,2100 Insulin Glargine [Lantus] 60 unit SQ 2100 Home Medications: Aspirin [Lo-Dose Aspirin EC] 81 mg PO 0900 01/07/19 [History] Carvedilol [Coreg] 25 mg PO 0900,1600 01/07/19 [History] Insulin ASPART [NovoLOG] 0 - 24 unit SQ 0700,1100,1600 01/07/19 [History] Insulin Glargine [Lantus] 34 units SQ 0700 01/07/19 [History] Medroxyprogesterone Acetate [Provera] 5 mg PO 0900 01/07/19 [History] Promethazine [Phenergan] 25 mg IM Q6HR PRN 01/07/19 [History] amLODIPine [Norvasc] 5 mg PO 0900 01/07/19 [History] levETIRAcetam [Roweepra] 750 mg PO 0900,209901/07/19 [History] Cimetidine 400 mg PO 0900,209901/08/19 [History] Dextromethorphan HBr/Quinidine [Nuedexta 20-10 mg Capsule] 1 cap PO 0900,209901/08/19 [History] Divalproex Sodium [Depakote Sprinkle] 125 mg PO 0900,1600,209901/08/19 [History] Insulin Glargine [Lantus] 60 unit SQ 209901/08/19 [History] Amoxicillin/Clavulanate [Augmentin] 500 mg PO BIDWM 7 Days #14 tablet 01/11/19 [Rx] Oxycodone HCl [OxyCODONE Oral Soln] 5 mg PO Q4HR PRN 2 Days #60 mls 01/11/19 [Rx] Allergies/Adverse Reactions: Allergy/AdvReac Type Severity Reaction Status Date / Time No Known Allergies Allergy Verified 01/08/19 12:45 Date of admission: 01/07/19 21:53 Primary care physician: PCP NONE Consults: 01/08/19 02:21 Consult to Orthopedic Surgery [CONS] Routine Consulting Provider: Marvin Muhammad Reason for Consult: Left hip fracture Call Completed: Yes 01/09/19 15:59 Consult to Occupational Therapy [CONS] Routine Comment: Evaluate, develop and implement POC Reason for Consult: post hip surgery Does patient have active BEDREST order?: No Is patient medically & hemodynamically stable?: Yes Patient assessed for mobility or mobilized this visit?: Yes Consult to Orthopedic Navigator [CONS] [CONS] Routine Consult to Physical Therapy [CONS] Routine Comment: Evaluate, develop and implement POC Reason for Consult: post hip surgery Does patient have active BEDREST order?: No Is patient medically & hemodynamically stable?: Yes Patient assessed for mobility or mobilized this visit?: Yes Consult to Axle And Frame Mechanic [CONS] Routine Reason for SW Consult: post -op hip fracture RT Post Op Consult [CONS] Routine Discharging clinician: Sunil Carmona Anticipated date of discharge: 01/11/19 - Constitutional Vitals: Temp Pulse Resp BP Pulse Ox 98.7 F 83 20 136/94 94 01/11/19 07:06 01/11/19 10:52 01/11/19 10:52 01/11/19 10:52 01/11/19 10:52 General appearance: Present: A&O X 2, pleasant, no acute distress, answers questions appropriately. Absent: cooperative Exam: Alert, oriented to person, not time or place EOMI, PERRLA Heart in regular rate and rhythm without murmur or gallop auscultated Lungs clear to auscultation Abdomen soft nontender with normal bowel sounds present Sensation intact in all 4 extremities, motor intact in bilateral upper extremities Bandage on left hip clean, dry, intact Patient stated he could not move right lower extremity Patient did absentmindedly move left lower extremity on exam, 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 Pulses intact in bilateral lower extremities Skin warm and dry without any noted bleeding or rash - Patient Status Disposition: Transfer SNF Functional capacity at discharge: wheelchair bound Overall status at discharge: patient is progressing back to baseline - Ambulatory Orders Ambulatory Orders: Basic Metabolic Panel [CHEM] Time Frame: 3 Days, Facility: [facility], Location: Lab Complete Blood Count [HEME] Time Frame: 3 Days, Facility: [facility], Location: Lab - Discharge Instructions Follow Up With: Hillary Anderson PAC [Physician Software Validation Engineer] - 01/16/19 10:30 am NONE,PCP [Primary Care Provider] - - Diet and Activity Activity: as per physical therapy Diet: diabetic diet <Ej Cosby - Last Filed: 01/11/19 17:42> Orders not resulted at time of discharge: Pending orders 01/08/19 07:18 Culture,Blood [BC] AM 0400 Date of Encounter: 01/11/19 - Discharge Diagnosis (1) Closed left hip fracture Status: Acute Qualifiers: Encounter type: initial encounter Qualified Code(s): S72.002A - Fracture of unspecified part of neck of left femur, initial encounter for closed fracture (2) Chronic kidney disease Status: Chronic Qualifiers: Chronic kidney disease stage: stage 3 (moderate) Qualified Code(s): N18.3 - Chronic kidney disease, stage 3 (moderate) (3) History of CVA (cerebrovascular accident) Status: Chronic (4) Diabetes Status: Chronic Qualifiers: Diabetes mellitus type: type 2 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 transplanted heart: [place] Associated angina: without angina Qualified Code(s): I25.810 - Atherosclerosis of coronary artery bypass graft(s) without angina pectoris (7) History of seizure Status: Chronic (8) Anemia Status: Acute Qualifiers: Anemia type: other cause Other causes of anemia: other cause, not classified Qualified Code(s): D64.89 - Other specified anemias (9) UTI (urinary tract infection) Status: Acute Qualifiers: Urinary tract infection type: acute cystitis Hematuria presence: without hematuria Qualified Code(s): N30.00 - Acute cystitis without hematuria Hospital course: Mr. Fu is a 68 year old male - Time Spent with Patient Total time spent providing and/or coordinating discharge services: Date of admission: 01/07/19 21:53 Primary care physician: PCP NONE Consults: 01/08/19 02:21 Consult to Orthopedic Surgery [CONS] Routine Consulting Provider: Marvin Muhammad Reason for Consult: Left hip fracture Call Completed: Yes 01/09/19 15:59 Consult to Occupational Therapy [CONS] Routine Comment: Evaluate, develop and implement POC Reason for Consult: post hip surgery Does patient have active BEDREST order?: No Is patient medically & hemodynamically stable?: Yes Patient assessed for mobility or mobilized this visit?: Yes Consult to Orthopedic Navigator [CONS] [CONS] Routine Consult to Physical Therapy [CONS] Routine Comment: Evaluate, develop and implement POC Reason for Consult: post hip surgery Does patient have active BEDREST order?: No Is patient medically & hemodynamically stable?: Yes Patient assessed for mobility or mobilized this visit?: Yes Consult to Axle And Frame Mechanic [CONS] Routine Reason for SW Consult: post -op hip fracture RT Post Op Consult [CONS] Routine - Constitutional Vitals: Temp Pulse Resp BP Pulse Ox 98.9 F 87 18 151/87 95 01/11/19 10:57 01/11/19 10:57 01/11/19 10:57 01/11/19 10:57 01/11/19 10:57 - Attending Attestation I examined this patient and my medical decision-making was reviewed with the Resident Physician. I agree with the documented findings, disposition and treatment plan as described except to the extent set forth below.
[2019-01-11 11:52] VITALS: BP 151/87
--- NOTE | 2019-01-11 11:54 | Physician Discharge Referral ---
ExtendedCare Referral Info Transfer To: SNF Provider in Charge: [facility] Provider in Charge after Transfer: PCP Institutional Level of Care: Skilled - Diagnosis (1) Closed left hip fracture Priority: Primary Status: Acute (2) Anemia Priority: Secondary Status: Acute (3) Chronic kidney disease Priority: Secondary Status: Chronic (4) History of CVA (cerebrovascular accident) Priority: Secondary Status: Chronic (5) Diabetes Priority: Secondary Status: Chronic (6) Dementia Priority: Secondary Status: Chronic (7) CAD (coronary artery disease) Priority: Secondary Status: Chronic (8) History of seizure Priority: Secondary Status: Chronic (9) UTI (urinary tract infection) Priority: Secondary Status: Acute Prognosis: Fair Aware of Diagnosis: Family Aware of Prognosis: Family - Transfer Medications Prescriptions: Amoxicillin/Clavulanate [Augmentin] 500 mg PO BIDWM 7 Days #14 tablet Home Medications: Aspirin [Lo-Dose Aspirin EC] 81 mg PO 0900 01/07/19 [History] Carvedilol [Coreg] 25 mg PO 0900,1600 01/07/19 [History] Insulin ASPART [NovoLOG] 0 - 24 unit SQ 0700,1100,1600 01/07/19 [History] Insulin Glargine [Lantus] 34 units SQ 0700 01/07/19 [History] Medroxyprogesterone Acetate [Provera] 5 mg PO 0900 01/07/19 [History] Promethazine [Phenergan] 25 mg IM Q6HR PRN 01/07/19 [History] amLODIPine [Norvasc] 5 mg PO 0900 01/07/19 [History] levETIRAcetam [Roweepra] 750 mg PO 0900,209901/07/19 [History] Cimetidine 400 mg PO 0900,209901/08/19 [History] Dextromethorphan HBr/Quinidine [Nuedexta 20-10 mg Capsule] 1 cap PO 0900,209901/08/19 [History] Divalproex Sodium [Depakote Sprinkle] 125 mg PO 0900,1600,209901/08/19 [History] Insulin Glargine [Lantus] 60 unit SQ 209901/08/19 [History] Amoxicillin/Clavulanate [Augmentin] 500 mg PO BIDWM 7 Days #14 tablet 01/11/19 [Rx] Allergies/Adverse Reactions: Allergy/AdvReac Type Severity Reaction Status Date / Time No Known Allergies Allergy Verified 01/08/19 12:45 - Respiratory Orders Smoking Cessation: Smoking cessation has been advised. For more information, call the [place] Tobacco Quit Line at 1-726-UJNY-NOW. - Advance Directives Power of Equipment Monitor Phototypesetting for Health Care: Yes Code Status: Full Code - Mobility Orders Chair - Rehabiliation Orders Rehab Potential: Fair Rehab Orders: Evaluation for Physical Therapy, Evaluation for Occupational Therapy - Diet Orders No Concentrated Sweets CERTIFICATION: I certify that the transfer of the above named patient to an Extended Care Facility is necessary for the continuing treatment of the diagnosis listed. The above information is true and accurate reflection of patient's current condition. Confidential - Redisclosure prohibited without a patient's written consent.
[2019-01-11] MEDS ORDERED: Insulin LISPRO 300 UNITS/3 ML VIAL SQ ONE (12:23)
[2019-01-11] MEDS ORDERED: Insulin DETEMIR 100 UNIT/ML X5UNITS SQ SCH (21:00)
== END 2019-01-11 15:57 | DRG 308 ==
LOC: SUATTDRO 21:53 → 3ANU 21:53 → 3NENU 22:39
PROVIDERS: ADMIT Internal Medicine; ATTEND Student in an Organized Health Care Education/Training Program